=== PATIENT | female | born 1975 | race Caucasian/White ===

== ENCOUNTER → 2017-07-20 | Outpatient (CLI) | payer BC ==
[~2017-07-20] MED LIST: ATEN100T45 PO; CITA20TA4 PO; DOCU100T7 PO; FISH1CAP15 PO; FURO40TA4 PO; HYDR-3002 PO; LBT200T PO; MULT-633 PO; PNT40TEC PO; PREN1TAB39 PO; [UNRECOGNIZED DRUG - CODE] PO
--- NOTE | 2017-07-21 08:28 | Diagnostic Imaging Report ---
INDICATION: Routine screening. No prior mammograms are available for comparison. This is a baseline study. The current study was also evaluated with a Computer Aided Detection (CAD) system. Scattered fibroglandular densities are identified bilaterally. Tiny circumscribed nodular densities are noted bilaterally, which appear benign. There are numerous benign-appearing calcifications bilaterally. No dominant mass or malignant appearing microcalcifications are seen. The axillae are unremarkable. IMPRESSION: No mammographic features suspicious for malignancy are identified. ACR BI-RADS Category 2: Benign findings. Result letter will be mailed to the patient. Note: At least 10% of breast cancer is not imaged by mammography. Dictated by: Dictated on workstation # [id number]
== END ==
LOC: RAD 15:15
PROVIDERS: ATTEND Nurse Practitioner
DX: Z12.31 Encounter for screening mammogram for malignant neoplasm of breast (principal)
CPT/HCPCS: 77067

== ENCOUNTER → 2019-02-15 | Emergency (ER) | payer BC ==
[~2019-02-15] VITALS: Ht 162.5 cm; Wt 118.0 kg
[~2019-02-15] MED LIST changes: +ACHD5005 PO; +RX-HYDROCODONE/APAP 5/325 MG #4 TAB PK PO PRN
[2019-02-15 18:50] VITALS: BP 122/81
--- NOTE | 2019-02-15 19:23 | Diagnostic Imaging Report ---
Indication: Right ankle injury There is a minimally displaced oblique fracture of the lateral malleolus with posterior medial displacement of the distal component by the width of the cortex. The tibia appears to be intact. Ankle mortise is not widened. There is soft tissue swelling laterally. IMPRESSION: Minimally displaced oblique fracture of the lateral malleolus. Dictated by: Dictated on workstation # [id number]
--- NOTE | 2019-02-15 19:34 | ED Lower Extremity ---
General Chief Complaint: Lower Extremity Stated Complaint: R ANKLE PAIN Nursing Triage Note: states missed a step and turned ankle right. swelling and pain Nursing Sepsis Screen: No Definite Risk Source: patient Exam Limitations: no limitations History of Present Illness Date Seen by Provider: Feb 15, 2019 Time Seen by Provider: 19:34 Initial Comments 43 yo female patient presents with right ankle pain [place] Patient also c/o swelling and ecchymosis. Location Injury Occurred: [place] Onset: this evening Pain/Injury Location: right ankle Method of Injury: twisted Modifying Factors: Improves With Immobilization; Worse With Movement Allergies and Home Medications Allergies Coded Allergies: Penicillins (Unverified Allergy, RASH, 02/20/10) Home Medications Atenolol 100 Mg Tablet, 2 TAB PO DAILY, (Reported) Citalopram Hydrobromide 20 Mg Tablet, 1 TAB PO DAILY, (Reported) Fish Oil/Dha/Epa 1 Each Capsule, 2 TAB PO BID, (Reported) Hydralazine Hcl 10 Mg Tablet, 1 EACH PO TID Prescribed by: TIP FENTON on 02/20/10 0250 Hydrocodone Bit/Acetaminophen 1 Tab Tab, 1 EACH PO Q4-6HR PRN for PAIN-MODERATE Prescribed by: DAVIS TAY on 02/15/19 1950 Multivitamins 1 Each Tablet, 1 TAB PO DAILY, (Reported) Pantoprazole Sodium 40 Mg Tablet.dr, 40 MG PO DAILY, (Reported) Patient Home Medication List Home Medication List Reviewed: Yes Review of Systems Constitutional: no symptoms reported Respiratory: no symptoms reported Cardiovascular: no symptoms reported Musculoskeletal: see HPI; No back pain; joint pain (rt ankle), joint swelling (rt ankle); No neck pain Skin: change in color (ecchymosis right ankle) Psychiatric/Neurological: Denies Numbness, Denies Paresthesia, Denies Tingling, Denies Weakness All Other Systems Reviewed Negative Unless Noted: Yes (Negative excepted noted.) Past Dgdesai-Kwcihm-Rimzkt Hx Past Med/Social Hx: Reviewed and Corrections made Patient Social History Recent Foreign Travel: No Contact w/Someone Who Travel: No Recent Infectious Disease Expo: No Physical Abuse: No Sexual Abuse: No Mistreated: No Fear: No Past Medical History Surgeries: Yes (dental surgery) Adenoidectomy, Gallbladder, Tonsillectomy Respiratory: No Cardiac: Yes High Cholesterol, Hypertension Neurological: No Genitourinary: No Gastrointestinal: Yes Gastroesophageal Reflux Musculoskeletal: Yes (chronic neck pain) Endocrine: No Psychosocial: Yes Anxiety Family Medical History Reviewed Nursing Family Hx No Pertinent Family Hx Physical Exam Vital Signs Vital Signs - First Documented 02/15/19 18:50 Temp 36.8 Pulse 60 Resp 18 B/P (MAP) 122/81 (95) Pulse Ox 99 O2 Delivery Room Air Capillary Refill : Less Than 3 Seconds Height, Weight, BMI Height: '" Weight: lbs. oz. kg; 44.00 BMI Method:Stated General Appearance: WD/WN, no apparent distress Cardiovascular: normal peripheral pulses Legs: bilateral leg non-tender, bilateral leg normal inspection, bilateral leg normal range of motion, bilateral leg no evidence of injury Knees: bilateral knee non-tender, bilateral knee normal inspection, bilateral knee normal range of motion, bilateral knee no evidence of injury Ankles: left ankle non-tender, left ankle normal inspection, left ankle normal range of motion, left ankle no evidence of injury; right ankle bone tenderness (lateral malleolus), right ankle ecchymosis (lateral ankle), right ankle limited range of motion, right ankle pain, right ankle soft tissue tenderness, right ankle swelling (lateral malleolus) Feet: bilateral foot non-tender, bilateral foot normal inspection, bilateral foot normal range of motion, bilateral foot no evidence of injury Neurologic/Tendon: normal sensation, normal motor functions, normal tendon functions, responds to pain, no evidence tendon injury Neurologic/Psychiatric: no motor/sensory deficits, alert, normal mood/affect, oriented x 3 Skin: normal color, warm/dry, ecchymosis (right lateral ankle) Progress/Results/Core Measures Results/Orders My Orders Orders - DAVIS TAY Ankle, Right, 3 Views (02/15/19 18:59) Rx-Hydrocodone/Apap 5-325 Mg (Rx-Vicodin (02/15/19 20:00) Steplite (02/15/19 19:46) Vital Signs/I&O 02/15/19 18:50 Temp 36.8 Pulse 60 Resp 18 B/P (MAP) 122/81 (95) Pulse Ox 99 O2 Delivery Room Air Blood Pressure Mean: 95 Diagnostic Imaging Diagonstic Imaging: Xray Plain Films/CT/US/NM/MRI: ankle Comments Signed Date of Exam:02/15/19 ANKLE, RIGHT, 3 VIEWS Indication: Right ankle injury There is a minimally displaced oblique fracture of the lateral malleolus with posterior medial displacement of the distal component by the width of the cortex. The tibia appears to be intact. Ankle mortise is not widened. There is soft tissue swelling laterally. IMPRESSION: Minimally displaced oblique fracture of the lateral malleolus. Dictated by: Dictated on workstation # [id number] Reviewed: Reviewed by Me (radiology report reviewed by me) Departure Communication (Admissions) patient seen and evaluated. xray of the rt ankle obtained showing a mildly displaced distal fibula fracture. patient placed in a steplite boot and 3 in lei wrap. patient states she has crutches at home. patient requests to f/u with dr. holden. patient to call Monday for an appointment time. Patient discharged to home. Impression Primary Impression: Fracture of fibula, distal, closed Disposition: HOME, SELF-CARE Condition: Improved Departure-Patient Inst. Decision time for Depature: 19:49 Referrals: SCOT DOUGHERTY DO (PCP/Family) Primary Care Physician Patient Instructions: Ankle Fracture Add. Discharge Instructions: All discharge instructions reviewed with patient and/or family. Voiced understanding. Medications as instructed. No ibuprofen or Aleve. Elevate the right ankle on pillows. Ice pack for 20 minute intervals as needed for pain. Boot and crutches as instructed. Nonweightbearing on the right lower extremity until released by Dr. Holden. Follow-up with Dr. Holden as an outpatient for recheck within the next 7 days. Call Monday for appointment time. Return to the emergency department for worsened pain, numbness, or any other concerns. Scripts Hydrocodone Bit/Acetaminophen (Hydrocodone/Acetaminophen 5/325mg Tablet) 1 Tab Tab 1 EACH PO Q4-6HR PRN for PAIN-MODERATE MDD 10, #20 TAB 0 Refills Prov: DAVIS TAY 02/15/19 Work/School Note: Work Release Form Date Seen in the Emergency Department: Feb 15, 2019 Return to Work: Feb 18, 2019 Other Restrictions Listed Below: nonweight bearing on RLE until released by ortho DAVIS TAY Feb 15, 2019 19:34
== END | disposition home or self-care (01) ==
LOC: EDUNIT# 18:36 → ER 18:38
DX: S82.831A Other fracture of upper and lower end of right fibula, initial encounter for closed fracture (principal); I10 Essential (primary) hypertension; E78.00 Pure hypercholesterolemia, unspecified; K21.9 Gastro-esophageal reflux disease without esophagitis; F41.9 Anxiety disorder, unspecified; Z88.0 Allergy status to penicillin; Z90.89 Acquired absence of other organs; X50.1XXA Overexertion from prolonged static or awkward postures, initial encounter; Y92.39 Other specified sports and athletic area as the place of occurrence of the external cause
CPT/HCPCS: 73610; 99282

== ENCOUNTER 2019-10-01 12:27 | Outpatient (CLI) | payer BC ==
[~2019-10-01 12:27] MED LIST changes: -RX-HYDROCODONE/APAP 5/325 MG #4 TAB PK PO PRN
== END 2019-10-01 12:53 | disposition home or self-care (01) ==
LOC: SLEEP 12:27
PROVIDERS: ATTEND Nurse Practitioner
DX: G47.30 Sleep apnea, unspecified (principal); R06.83 Snoring; R53.83 Other fatigue